=== PATIENT | female | born 1980 | race Caucasian/White ===

== ENCOUNTER → 2017-09-27 | Outpatient (CLI) | payer OTHER ==
--- NOTE | 2017-09-27 16:50 | US ---
EXAMINATION TYPE: US pelvic complete DATE OF EXAM: 09/27/2017 COMPARISON: NONE CLINICAL HISTORY: 36-year-old female R10.2 Pelvic and perineal pain. Pt states bloating, ovaries "bur darcie", and irregular menses TECHNIQUE: Transabdominal sonographic images of the pelvis were acquired. Date of LMP: 09/15/2017 FINDINGS: EXAM MEASUREMENTS: Uterus: 9.4 x 4.0 x 4.9 cm Endometrial Stripe: 0.5 cm Right Ovary: 2.0 x 2.1 x 1.5 cm Left Ovary: 2.6 x 1.8 x 1.6 cm 1. Uterus: Anteverted wnl 2. Endometrium: wnl 3. Right Ovary: wnl 4. Left Ovary: wnl 5. Bilateral Adnexa: wnl 6. Posterior cul-de-sac: wnl Collet Driller notes:No abnormality visualized to account for pt's symptoms IMPRESSION: Unremarkable transabdominal sonographic examination of the pelvis.
== END ==
LOC: RADUSWWP 14:14
PROVIDERS: ATTEND Family Medicine
DX: R10.2 Pelvic and perineal pain (principal)
CPT/HCPCS: 76856

== ENCOUNTER → 2017-12-14 | Outpatient (CLI) | payer OTHER ==
--- NOTE | 2017-12-14 17:55 | US ---
EXAMINATION TYPE: US thyroid st tissue head/neck DATE OF EXAM: 12/14/2017 COMPARISON: NONE CLINICAL HISTORY: E03.9 ACQUIRED HYPOTHYROIDISM. History of Grave's disease and 2 doses of radioactiv e iodine, most recent was 6 years ago GLAND SIZE: Right Lobe: 2.7 x 0.5 x 1.0 cm Overall Parenchyma: heterogenous Left Lobe: 2.1 x 0.7 x 0.9 cm Overall Parenchyma: heterogeneous Isthmus Thickness: 0.2 cm NODULES RIGHT: # of nodules measured on right: 0 LEFT: # of nodules measured on left: 0 ISTHMUS: # of nodules measured in the isthmus: 0 Bilateral neck scanned, no evidence of lymphadenopathy. difficult to visualize thyroid gland due to it's size (extremely small) IMPRESSION: No thyroid mass identified.
== END | disposition home or self-care (01) ==
LOC: RADUSWWP 16:54
PROVIDERS: ATTEND Family Medicine
DX: E03.9 Hypothyroidism, unspecified (principal)
CPT/HCPCS: 76536

== ENCOUNTER → 2017-12-17 | Outpatient (CLI) | payer OTHER ==
--- NOTE | 2017-12-18 17:25 | MR ---
EXAMINATION TYPE: MR lumbar spine wo con DATE OF EXAM: 12/17/2017 COMPARISON: None HISTORY: 37-year-old female with Low back pain TECHNIQUE: Multiplanar, multisequence images of the lumbar spine were acquired. Findings: Vertebral body heights are preserved and alignment is maintained. Diffuse decreased marrow signal intensity suggesting red marrow hyperplasia. Conus medullaris is normal. Slight prominence of the central canal is noted. Tiny subcentimeter T2 hyperintensity within the upper pole left kidney, likely tiny cyst. Degenerative disc disease lower lumbar spine with a disc desiccation and disc bulging at L4-L5. Poste rior annular fissure is present. At L5-S1, the disc is generated, desiccated, narrowed, diffusely bulging. There is associated Modic t ype II fatty change or. Mild facet arthropathy lower lumbar spine. At the T12-L1, mild bulging disc without canal or foraminal stenosis. L1-L2, mild bulging disc without canal or foraminal stenosis. At L2-L3, minimal bulging disc without canal or foraminal stenosis. At L3-L4, minimal bulging disc with ligamentum flavum thickening. No canal or foraminal stenosis. At L4-L5, diffuse disc bulge with mild facet degenerative change. Posterior annular fissure is presen t. Changes result in minimal inferior foraminal narrowing on the right. No spinal canal stenosis. At L5-S1, bulging disc and facet degenerative change. No significant spinal canal or neural foraminal stenosis seen. No prevertebral or paravertebral soft tissue quality. IMPRESSION: 1. Moderate degenerative disc disease at L5-S1 with degenerated, desiccated, narrowed, a diffusely bu lging disc with associated Modic type II endplate change. 2. Additional disc desiccation and disc bulge with posterior annular fissure at L4-L5. 3. Additional levels of very mild disc bulging throughout and facet arthropathy in the lower lumbar s pine. 4. Changes contribute to minimal inferior foraminal narrowing on the right at L4-L5. No spinal canal stenosis. 5. Low marrow signal suggestive of red marrow hyperplasia. This can be seen in the setting of anemia, obesity, smoking, and chronic disease. Clinically correlate. 6. Incidental slight prominence to the central canal of the visualized distal cord, probably normal v ariation. If there is clinical possibility of syrinx, consider surveying the cervical and thoracic sp ine.
== END ==
LOC: RADMRIMAIN 14:36
PROVIDERS: ATTEND Psychiatry & Neurology Neurology
DX: M48.061 Spinal stenosis, lumbar region without neurogenic claudication (principal); M99.73 Connective tissue and disc stenosis of intervertebral foramina of lumbar region; M46.96 Unspecified inflammatory spondylopathy, lumbar region; M51.37 Other intervertebral disc degeneration, lumbosacral region; M47.816 Spondylosis without myelopathy or radiculopathy, lumbar region; M51.26 Other intervertebral disc displacement, lumbar region
CPT/HCPCS: 72148

== ENCOUNTER → 2018-03-06 | Outpatient (CLI) | payer OTHER | END | disposition home or self-care (01) | LOC: LABWHC1 15:58 | PROVIDERS: ATTEND Allergy & Immunology | DX: R10.9 Unspecified abdominal pain (principal) | CPT/HCPCS: 36415; 82785 ==

== ENCOUNTER → 2018-03-22 | Outpatient (CLI) | payer OTHER ==
--- NOTE | 2018-03-22 13:32 | XR ---
Cervical spine HISTORY: Neck pain 5 views of the cervical spine Cervical vertebral bodies show preserved height, alignment, and bone mineralization. Some loss of dis c height present at the intervertebral levels, there is spondylosis present at C4-5. No significant f oraminal encroachment. Odontoid view somewhat limited. Prevertebral soft tissues are normal. IMPRESSION: Degenerative disc disease.
== END | disposition home or self-care (01) ==
LOC: RADXRMAIN 11:11
PROVIDERS: ATTEND Family Medicine
DX: M50.30 Other cervical disc degeneration, unspecified cervical region (principal)
CPT/HCPCS: 72050

== ENCOUNTER 2019-09-30 17:56 | Emergency (ER) | payer OTHER ==
[2019-09-30 18:02] VITALS: BP 126/86; PULSE 82; RESP 20; TEMP 98.3
[2019-09-30] MEDS ORDERED: LIDOCAINE/EPINEPHR/TETRACAINE 5 ML BOTTLE TOPICAL ONE (18:32)
[2019-09-30] MEDS ORDERED: ONDANSETRON 4 MG ODT STARTER PACK 2 TAB BTL PO STA (18:35)
[2019-09-30] MEDS ORDERED: ACET/COD 300 MG/30 MG STARTER PACK 6 TAB BTL PO STA (18:35)
--- NOTE | 2019-09-30 19:13 | ED ---
General Adult HPI - General Chief complaint: Recheck/Abnormal Lab/Rx Stated complaint: Private Time Seen by Provider: 09/30/19 18:05 Source: patient, RN notes reviewed, old records reviewed Mode of arrival: ambulatory Limitations: no limitations - History of Present Illness Initial comments: Patient is a 38-year-old female presents returns today with chief complaint of painful hemorrhoid. She reports she's had this hemorrhoid pain Starting last night into today. She states that she's had an extensive history of hemorrhoids and has had banding multiple times. Patient states that she has history of early bowel syndrome and suffers attending constipation and diarrhea. Lately she's had more frequent diarrhea which triggered these hemorrhoids to occur she is going to the bathroom frequently. Patient states that she is not on blood thinners. She states she's previously had have her hemorrhoid lanced. She is hoping that this can be done today. - Related Data Previous Rx's Medication Instructions Recorded Acetaminophen with Codeine 1 tab PO Q6H PRN 3 Days #12 tab 09/30/19 [Tylenol w/codeine #3] Lidocaine [Lidocaine 5% Rectal 1 applic RECTAL TID #15 gm 09/30/19 Cream] Ondansetron Odt [Zofran Odt] 4 mg PO Q8HR PRN #12 tab 09/30/19 Allergies Allergy/AdvReac Type Severity Reaction Status Date / Time No Known Allergies Allergy Verified 09/30/19 18:02 Review of Systems ROS Statement: Those systems with pertinent positive or pertinent negative responses have been documented in the HPI. ROS Other: All systems not noted in ROS Statement are negative. Past Medical History Past Medical History: Hyperlipidemia Additional Past Medical History / Comment(s): hemorroids. graves. IBS History of Any Multi-Drug Resistant Organisms: None Reported Past Surgical History: No Surgical Hx Reported Past Psychological History: Anxiety Smoking Status: Never smoker Past Alcohol Use History: None Reported Past Drug Use History: None Reported General Exam - General Exam Comments Initial Comments: Patient is a 38-year-old female. Alert and oriented. No distress. Limitations: no limitations General appearance: alert, in no apparent distress Head exam: Present: atraumatic, normocephalic, normal inspection Eye exam: Present: normal appearance, PERRL, EOMI. Absent: scleral icterus, conjunctival injection, periorbital swelling ENT exam: Present: normal exam, mucous membranes moist Neck exam: Present: normal inspection. Absent: tenderness, meningismus, lymphadenopathy Respiratory exam: Present: normal lung sounds bilaterally. Absent: respiratory distress, wheezes, rales, rhonchi, stridor Cardiovascular Exam: Present: regular rate, normal rhythm, normal heart sounds. Absent: systolic murmur, diastolic murmur, rubs, gallop, clicks GI/Abdominal exam: Present: soft, normal bowel sounds. Absent: distended, tenderness, guarding, rebound, rigid Rectal exam: Present: hemorrhoids (Patient has a large thrombosed hemorrhoid on the right side with some concern for starting of thrombosis.). Absent: normal inspection Extremities exam: Present: normal inspection, full ROM, normal capillary refill. Absent: tenderness, pedal edema, joint swelling, calf tenderness Back exam: Present: normal inspection Neurological exam: Present: alert, oriented X3, CN II-XII intact Psychiatric exam: Present: normal affect, normal mood Skin exam: Present: warm, dry, intact, normal color. Absent: rash Course Vital Signs 09/30/19 09/30/19 17:58 19:24 Temperature 98.3 F 98.3 F Pulse Rate 82 82 Respiratory 20 20 Rate Blood Pressure 126/86 126/86 O2 Sat by Pulse 99 99 Oximetry Medical Decision Making - Medical Decision Making 38-year-old female presents to return today for concern for thrombosed hemorrhoid and significant rectal pain. Patient at this time has multiple hemorrhoids on exam one area of close to being thrombosed. Examined the Patient with Dr. Goff did discuss possible drainage and lancing of the hemorrhoid. Dr. Goff determined hemorrhoid is is not fully thrombosed and would recommend ag ainst lancing the hemorrhoid it at this time. Patient did have topical lidocaine over there and reports some mild improvement. We'll discharge the Patient with a short course of pain medication, nausea medication and lidocaine cream to use as well as Preparation H. Discussed she should follow-up with her surgeon or her pain was more severe she can always return to the ER. Disposition Clinical Impression: Hemorrhoid Disposition: HOME SELF-CARE Condition: Good Instructions (If sedation given, give patient instructions): Hemorrhoids (ED) Additional Instructions: Recommended follow-up with PCP, and colorectal surgeon. Continue to use pain medication nausea medicine. you can use topical lidocaine. Patient should return to the emergency department if any alarming signs or symptoms occur. Prescriptions: Lidocaine [Lidocaine 5% Rectal Cream] 1 applic RECTAL TID #15 gm Acetaminophen with Codeine [Tylenol w/codeine #3] 1 tab PO Q6H PRN 3 Days #12 tab PRN Reason: Pain Ondansetron Odt [Zofran Odt] 4 mg PO Q8HR PRN #12 tab PRN Reason: Nausea Is patient prescribed a controlled substance at d/c from ED?: No Referrals: Gloria Conner MD [Primary Care Provider] - 1-2 days Time of Disposition: 19:11
== END 2019-09-30 19:25 | disposition home or self-care (01) ==
LOC: EC 17:56
DX: K64.5 Perianal venous thrombosis (principal)
CPT/HCPCS: 99283; S0119

== ENCOUNTER → 2019-10-11 | Outpatient (CLI) | payer OTHER ==
[2019-10-11 18:52] LABS: Potassium 3.9 mmol/L (3.5-5.5)
[2019-10-11 19:50] LABS: HCG,Quantitative Serum <2.0 mIU/mL
== END | disposition home or self-care (01) ==
LOC: LABWHC1 13:49
PROVIDERS: ATTEND Dermatology Procedural Dermatology
DX: L73.2 Hidradenitis suppurativa (principal)
CPT/HCPCS: 36415; 84132; 84702

== ENCOUNTER 2020-02-19 04:46 | Emergency (ER) | payer OTHER ==
[2020-02-19 04:57] VITALS: RESP 18; TEMP 98.1
--- NOTE | 2020-02-19 05:11 | ED ---
Recheck HPI - General Chief Complaint: GI Bleed Stated Complaint: hemorrhoids Time Seen by Provider: 02/19/20 04:46 Source: patient, RN notes reviewed, old records reviewed Mode of arrival: ambulatory Limitations: no limitations - History of Present Illness Initial Comments: This is a 3-year-old female DF for evaluation patient has history of hemorrhoids taken due to irritable bowel disease. Both diarrhea and constipation. Patient states her with her severe currently with severe pain has had not had any recent bleeding has had history of surgery multiple surgeries in her hemorrhoids in the past. Patient has otherwise no new complaints MD Complaint: wound re-check, medication refill request -: year(s) Returns Today for: persistent/worsening pain related to initial visit Symptoms Since Prior Visit: worsening pain Context: ran out of medication Associated Symptoms: none Treatments Prior to Arrival: Given Pain Meds on - Related Data Previous Rx's Medication Instructions Recorded Acetaminophen with Codeine 1 tab PO Q6H PRN 3 Days #12 tab 09/30/19 [Tylenol w/codeine #3] Lidocaine [Lidocaine 5% Rectal 1 applic RECTAL TID #15 gm 09/30/19 Cream] Ondansetron Odt [Zofran Odt] 4 mg PO Q8HR PRN #12 tab 09/30/19 Allergies Allergy/AdvReac Type Severity Reaction Status Date / Time No Known Allergies Allergy Verified 02/19/20 04:57 Review of Systems ROS Statement: Those systems with pertinent positive or pertinent negative responses have been documented in the HPI. ROS Other: All systems not noted in ROS Statement are negative. Past Medical History Past Medical History: Hyperlipidemia Additional Past Medical History / Comment(s): hemorroids. graves. IBS History of Any Multi-Drug Resistant Organisms: None Reported Past Surgical History: No Surgical Hx Reported Past Psychological History: Anxiety Smoking Status: Never smoker Past Alcohol Use History: None Reported Past Drug Use History: None Reported General Exam Limitations: no limitations General appearance: alert, in no apparent distress Head exam: Present: atraumatic, normocephalic, normal inspection Eye exam: Present: normal appearance, PERRL, EOMI. Absent: scleral icterus, conjunctival injection, periorbital swelling ENT exam: Present: normal exam, mucous membranes moist Neck exam: Present: normal inspection. Absent: tenderness, meningismus, lymphadenopathy Respiratory exam: Present: normal lung sounds bilaterally. Absent: respiratory distress, wheezes, rales, rhonchi, stridor Cardiovascular Exam: Present: regular rate, normal rhythm, normal heart sounds. Absent: systolic murmur, diastolic murmur, rubs, gallop, clicks GI/Abdominal exam: Present: soft, normal bowel sounds. Absent: distended, tenderness, guarding, rebound, rigid Rectal exam: Present: hemorrhoids (Multiple hemorrhoids) Extremities exam: Present: normal inspection, full ROM, normal capillary refill. Absent: tenderness, pedal edema, joint swelling, calf tenderness Back exam: Present: normal inspection Neurological exam: Present: alert, oriented X3, CN II-XII intact Psychiatric exam: Present: normal affect, normal mood Skin exam: Present: warm, dry, intact, normal color. Absent: rash Course Vital Signs 02/19/20 02/19/20 04:53 07:11 Temperature 98.1 F Pulse Rate 65 64 Respiratory 18 18 Rate Blood Pressure 103/72 114/88 O2 Sat by Pulse 99 98 Oximetry - Reevaluation(s) Reevaluation #1: Medical record is reviewed Patient has significant improvement in symptoms Patient has no recent change in complaints Patient and mother informed of results and questions have been answered Patient feels good for discharge Medical Decision Making - Medical Decision Making 39 female DF for eval regarding hemorrhoid and recurrent hemorrhoid pain pain. Patient does have hemorrhoids on exam nonthrombosed. Patient will be given pain control can be discharged home Disposition Clinical Impression: Hemorrhoids Disposition: HOME SELF-CARE Condition: Good Instructions (If sedation given, give patient instructions): Hemorrhoids (ED) Is patient prescribed a controlled substance at d/c from ED?: No Referrals: Gloria Conner MD [Primary Care Provider] - 1-2 days
[2020-02-19] MEDS ORDERED: HYDROmorphone 1 MG/ML 1 ML SYRINGE IM STA (05:32)
[2020-02-19] MEDS ORDERED: IBUPROFEN 800 MG TAB PO STA (05:32)
[2020-02-19] MEDS ORDERED: HYDROCORTISONE SUPPOSITORY 25 MG SUPP RECTAL ONE (05:45)
[2020-02-19] MEDS ORDERED: traMADol 50 MG STARTER PACK 3 TAB BTL PO STA (07:00)
[2020-02-19] MEDS ORDERED: traMADol 50 MG TAB PO STA (07:00)
[2020-02-19 07:13] VITALS: BP 114/88; PULSE 64
[2020-02-19] MEDS ORDERED: LIDOCAINE 5% PATCH TOPICAL SCH (09:00)
== END 2020-02-19 07:19 | disposition home or self-care (01) ==
LOC: EC 04:46
DX: K64.9 Unspecified hemorrhoids (principal); Z87.19 Personal history of other diseases of the digestive system
CPT/HCPCS: 96372; 99285; J1170

== ENCOUNTER → 2020-06-20 | Outpatient (CLI) | payer OTHER ==
--- NOTE | 2020-06-20 14:49 | MM ---
Reason for exam: screening (asymptomatic). Baseline mammogram. History: Family history of breast cancer in maternal grandmother at age 70. Taking hormonal contraceptives beginning at age 15. Physical Findings: Nurse did not find any significant physical abnormalities on exam. MG Screening Mammo w CAD Bilateral CC and MLO view(s) were taken. There are scattered fibroglandular densities. There is no discrete abnormality. No significant new findings when compared with previous films. These results were verbally communicated with the patient and result sheet given to the patient on 06/20/20. ASSESSMENT: Negative, BI-RAD 1 RECOMMENDATION: Routine screening mammogram of both breasts in 1 year.
== END | disposition home or self-care (01) ==
LOC: RADMAMWWP 13:07
PROVIDERS: ATTEND Obstetrics & Gynecology
DX: Z12.31 Encounter for screening mammogram for malignant neoplasm of breast (principal); Z80.3 Family history of malignant neoplasm of breast
CPT/HCPCS: 77067

== ENCOUNTER → 2020-08-05 | Outpatient (CLI) | payer OTHER ==
--- NOTE | 2020-08-05 19:27 | CONS ---
CONSULTATION REASON FOR CONSULTATION: Sleep apnea. HISTORY OF PRESENT ILLNESS: Aline is a 39-year-old female patient who is coming in with multiple complaints. There is a concern that she may have an underlying obstructive sleep apnea. The patient reports that she feels like she stops breathing in the middle of the night. She snores loud and she wakes up almost 30 times in the middle of the night. Sometimes she feels like her heart stops beating. She is very much tired and sleepy during the day. She can fall asleep at any time. She is ingesting large quantities of caffeinated beverages including coffee. She goes to bed around 8:30 pm, wakes up at 6 a.m. in the morning and she is working locally for [employer]. She does a lot of computer work and she says this is affecting her quality of life and affecting her functionality at work. No recent weight gain. She sleeps on her side. She is a nose breather. She has undergone radioactive iodine treatment for previous history of Graves disease. She is currently on thyroid hormone replacement. No grinding of the teeth. No restlessness of the lower extremities. She wakes up to urinate multiple occasion during the middle of the night. No history of any motor vehicle accident because of feeling drowsy or sleepy. PAST MEDICAL HISTORY: Chronic anxiety, hyperlipidemia and Graves disease. SURGICAL HISTORY: Includes eyelid surgery. DRUG ALLERGIES: Not known. OUTPATIENT MEDICATION LIST: Includes Lipitor 20 daily, levothyroxine 125 mcg p.o. q.a.m., medroxyprogesterone shots and BuSpar 10 mg p.o. daily. SOCIAL HISTORY: Nonsmoker. She drinks coffee in excess. No history of alcohol. No history of substance abuse. FAMILY HISTORY: Her son has asthma. Hypertension, and hyperlipidemia and CVA also runs in the family. REVIEW OF SYSTEMS: Fourteen-point review of system was done. Positive findings are mentioned in history of present illness. The patient also prefers a gluten free diet. No lactulose diet. PHYSICAL EXAMINATION: VITAL SIGNS: Her BP is 115/71, pulse 93, respirations 16, temperature 98.3, saturation 99% on room air. Height is 5 feet 7 inches, weight is 185, BMI is 28.8. Neck size 15 inches. Morrison score is at 3. General appearance: Calm, comfortable. Head atraumatic, normocephalic. NECK: Supple. No JVD. No goiter or neck masses. Slight micrognathia. Mallampati class 1. LUNGS: Clear to auscultation. HEART: Heart sounds are regular rate and rhythm. Normal S1, S2. No S3, S4. No murmurs. ABDOMEN: Soft, nontender. No organomegaly. EXTREMITIES: No edema. No cyanosis or clubbing. NEUROLOGIC: Awake and alert. There is no focal neurological deficits. PSYCHIATRIC: Negative for anxiety or depression. IMPRESSION: 1. Chronic hypersomnia under investigation consider underlying obstructive sleep apnea. The patient has all clinical symptoms of obstructive sleep apnea. Anatomically she has an adequate upper airway structures with a Mallampati class 1 and her body mass index is only at 28.8. Nevertheless, clinically, there is a high suspicion for obstructive sleep apnea. 2. Chronic anxiety. 3. History of Graves disease treated with radioactive iodine treatment. 4. Hyperlipidemia. 5. Chronic anxiety. PLAN: 1. Proceed with a full polysomnogram. 2. Will get back to the patient with the results and will decide on treatment accordingly. MMODL / IJN: [id number] /
== END ==
CPT/HCPCS: 99211

== ENCOUNTER → 2021-04-21 | Outpatient (CLI) | payer OTHER ==
--- NOTE | 2021-04-21 22:44 | CT ---
EXAMINATION TYPE: CT lumbar spine wo con DATE OF EXAM: 04/21/2021 5:41 PM COMPARISON: MRI dated 12/17/2017 HISTORY: worsening low back pain CT DLP: 904.3 mGycm Automated exposure control for dose reduction was used. Technique: Unenhanced CT of the lumbar spine was performed. Bone and soft tissue window settings are submitted as well as coronal and sagittal reconstructions. FINDINGS: Preserved lumbar lordosis. No significant anterolisthesis or retrolisthesis. No definite vertebral marion dy collapse or acute displaced fracture. At L1-2 level: No significant disc disease, central spinal canal stenosis or neuroforaminal stenosis. At L2-3 level: Mild posterior annular disc relaxation, causing no significant central spinal canal st enosis or neuroforaminal stenosis. At L3-4 level: Mild diffuse posterior disc bulge, causing no significant central spinal canal stenosi s or significant neuroforaminal stenosis. At L4-5 level: Slightly degenerated disc with diffuse posterior disc bulge, causing no significant ce ntral spinal canal stenosis or significant neural foraminal stenosis. At L5-S1 level: Markedly degenerated disc with disc calcification, osteophytosis and beginning of fus ion between L5 and S1. Diffuse posterior disc osteophyte complex seen mainly centrally, associated wi th mild facet osteoarthropathy, causing mild (likely insignificant) central spinal canal stenosis and no significant neuroforaminal stenosis. Prominent yet subcentimeter retroperitoneal lymph nodes. No paraspinal lesion. IMPRESSION: Degenerative changes of the lumbar spine most evident at L5-S1 level as detailed above. Still no sign ificant central spinal canal stenosis or neuroforaminal stenosis.
== END | disposition home or self-care (01) ==
LOC: RADCTMAIN 16:46
PROVIDERS: ATTEND Orthopaedic Surgery
DX: M51.37 Other intervertebral disc degeneration, lumbosacral region (principal)
CPT/HCPCS: 72131

== ENCOUNTER → 2021-04-21 | Outpatient (CLI) | payer OTHER ==
--- NOTE | 2021-04-22 04:06 | MR ---
EXAMINATION TYPE: MR lumbar spine wo con DATE OF EXAM: 04/21/2021 COMPARISON: 12/17/2017 HISTORY: Low back pain for 20 years Multiplanar multi echo imaging of the lumbar spine without contrast. The lumbar vertebrae have normal alignment. Disc spaces are fairly normal. There is no compression fr acture. There is developmentally large spinal canal. No spinal stenosis. 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 Lumbar nerve roots appear normal. The neural foramina are widely patent. Ther e is no lumbar paraspinal mass. There is no compression fracture. The sacroiliac joints appear intact. No evidence of focal bone dest ruction. IMPRESSION: Minor degenerative disc change at L4-5. No fracture. No spinal stenosis. No significant change compar ed to old exam.
== END | disposition home or self-care (01) ==
LOC: RADMRIMAIN 16:43
PROVIDERS: ATTEND Orthopaedic Surgery
DX: M51.36 Other intervertebral disc degeneration, lumbar region (principal)
CPT/HCPCS: 72148

== ENCOUNTER → 2021-05-12 | Outpatient (CLI) | payer OTHER ==
--- NOTE | 2021-05-12 14:01 | XR ---
EXAMINATION TYPE: XR chest 2V DATE OF EXAM: 05/12/2021 COMPARISON: NONE TECHNIQUE: PA and lateral views submitted. HISTORY: Chronic cough FINDINGS: The lungs are clear and there is no pneumothorax, pleural effusion, or focal pneumonia. Coarsened i nterstitial markings. Mild hyperinflation. Mild hypertrophic change of the spine. IMPRESSION: 1. Correlate for bronchitis, interstitial lung disease or pneumonitis..
== END | disposition home or self-care (01) ==
LOC: RADXRMAIN 13:44
PROVIDERS: ATTEND Family Medicine
DX: R05.3 Chronic cough (principal)
CPT/HCPCS: 71046

== ENCOUNTER → 2021-06-17 | Outpatient (CLI) | payer OTHER ==
--- NOTE | 2021-06-17 08:53 | MM ---
Reason for exam: clinical finding. Last mammogram was performed 1 year ago. History: Family history of breast cancer in maternal grandmother at age 70. Taking hormonal contraceptives beginning at age 15. Physical Findings: A clinical breast exam by your physician is recommended on an annual basis and results should be correlated with mammographic findings. MG Diagnostic Mammo w CAD BE Bilateral CC and MLO view(s) were taken. LM, spot compression CC, and spot compression MLO view(s) were taken of the left breast. Prior study comparison: June 20, 2020, bilateral MG screening mammo w CAD. The breast tissue is heterogeneously dense. This may lower the sensitivity of mammography. There is no discrete abnormality including area of concern. No significant new findings when compared with previous films. Results were given to the patient verbally at the time of the exam. ASSESSMENT: Negative, BI-RAD 1 RECOMMENDATION: Routine screening mammogram of both breasts in 1 year.
== END | disposition home or self-care (01) ==
LOC: RADMAMWWP 08:18
PROVIDERS: ATTEND Obstetrics & Gynecology
DX: Z12.31 Encounter for screening mammogram for malignant neoplasm of breast (principal); Z80.3 Family history of malignant neoplasm of breast; N64.4 Mastodynia
CPT/HCPCS: 77066

== ENCOUNTER → 2022-06-21 | Outpatient (CLI) | payer OTHER ==
--- NOTE | 2022-06-22 08:01 | MM ---
Reason for Exam: Screening (asymptomatic). Last screening mammogram was performed 12 month(s) ago. Patient History: Menarche at age 14. First Full-Term at age 21. Hormonal Contraceptives, starting at age 15. Maternal grandmother had breast cancer, age 70. Risk Values: Agnes 5 year model risk: 0.5%. NCI Lifetime model risk: 8.1%. Prior Study Comparison: 06/20/2020 Bilateral Screening Mammogram, [facility]. 06/17/2021 Bilateral Diagnostic Mammogram, [facility]. Tissue Density: There are scattered fibroglandular densities. Findings: Analyzed By CAD. There is no suspicious group of microcalcifications or new suspicious mass in either breast. Overall Assessment: Negative, BI-RAD 1 Management: Screening Mammogram of both breasts in 1 year. A clinical breast exam by your physician is recommended on an annual basis and results should be correlated with mammographic findings. Electronically signed and approved by: Santana Cartagena M.D. Radiologis
== END | disposition home or self-care (01) ==
LOC: RADMAMWWP 09:42
PROVIDERS: ATTEND Obstetrics & Gynecology
DX: Z12.31 Encounter for screening mammogram for malignant neoplasm of breast (principal); Z80.3 Family history of malignant neoplasm of breast
CPT/HCPCS: 77063; 77067

== ENCOUNTER → 2023-03-23 | Outpatient (CLI) | payer OTHER ==
--- NOTE | 2023-03-23 14:37 | XR ---
EXAMINATION TYPE: XR cervical spine comp DATE OF EXAM: 03/23/2023 2:06 PM CLINICAL INDICATION:Female, 42 years old with history of M54.2 XR CERVICALGIA; COMPARISON: 03/22/2018 TECHNIQUE: The cervical spine was imaged in frontal, lateral, odontoid and bilateral oblique. FINDINGS: The osseous structures show normal alignment without evidence of an acute fracture. There are osteoph ytes noted throughout the cervical spine on the anterior and lateral aspects of the vertebral bodies. The intervertebral disk spaces are narrowed at multiple levels. Pedicles are intact. Soft tissues a re within normal limits. The odontoid appears intact. IMPRESSION: 1. No fracture or dislocation. 2. Mild degenerative disc disease changes of the cervical spine.
== END | disposition home or self-care (01) ==
LOC: RADXRMAIN 13:40
PROVIDERS: ATTEND Family Medicine
DX: M50.30 Other cervical disc degeneration, unspecified cervical region (principal)
CPT/HCPCS: 72050

== ENCOUNTER → 2023-08-15 | Outpatient (CLI) | payer OTHER ==
--- NOTE | 2023-08-17 09:59 | MM ---
Reason for Exam: Screening (asymptomatic). Last mammogram was performed 1 year(s) and 2 month(s) ago. Patient History: Menarche at age 14. First Full-Term at age 21. Patient has history of breast feeding. Hormonal Contraceptives, starting at age 15. Maternal grandmother had breast cancer, age 70. Risk Values: Agnes 5 year model risk: 0.6%. NCI Lifetime model risk: 8.0%. Prior Study Comparison: 06/20/2020 Bilateral Screening Mammogram, [facility]. 06/17/2021 Bilateral Diagnostic Mammogram, [facility]. 06/21/2022 Bilateral MG 3D screening mammo w/cad, [facility]. Tissue Density: There are scattered areas of fibroglandular density. Findings: Analyzed By CAD. There is no suspicious group of microcalcifications or new suspicious mass in either breast. Overall Assessment: Negative, BI-RAD 1 Management: Screening Mammogram of both breasts in 1 year. . Patient should continue monthly self-breast exams. A clinical breast exam by your physician is recommended on an annual basis. This exam should not preclude additional follow-up of suspicious palpable abnormalities. Note on Agnes scores and lifetime risk: 1. A Agnes score greater than 3% is considered moderate risk. If this is the case, consider specialist referral to assess eligibility for a risk reducing agent. 2. If overall lifetime risk for the development of breast cancer is 20% or higher, the patient may qualify for future screening with alternating mammogram and breast MRI. Electronically signed and approved by: Santana Cartagena M.D. Radiologis
== END | disposition home or self-care (01) ==
LOC: RADMAMWWP 11:56
PROVIDERS: ATTEND Obstetrics & Gynecology
DX: Z12.31 Encounter for screening mammogram for malignant neoplasm of breast (principal); Z80.3 Family history of malignant neoplasm of breast
CPT/HCPCS: 77063; 77067

== ENCOUNTER → 2024-09-21 | Outpatient (CLI) | payer OTHER ==
--- NOTE | 2024-09-24 08:03 | MM ---
Reason for Exam: Screening (asymptomatic). Last mammogram was performed 1 year(s) and 1 month(s) ago. Patient History: Menarche at age 14. First Full-Term at age 21. Postmenopausal. Patient has history of breast feeding. Hormonal Contraceptives, starting at age 15. Maternal grandmother had breast cancer, age 70. Risk Values: Agnes 5 year model risk: 0.6%. NCI Lifetime model risk: 8.0%. Prior Study Comparison: 06/17/2021 Bilateral Diagnostic Mammogram, [facility]. 06/21/2022 Bilateral MG 3D screening mammo w/cad, [facility]. 08/15/2023 Bilateral MG 3D screening mammo w/cad, [facility]. Tissue Density: The breasts are heterogeneously dense, which may obscure small masses. Findings: Analyzed By CAD. There is no suspicious group of microcalcifications or new suspicious mass in either breast. Overall Assessment: Negative, BI-RAD 1 Management: Screening Mammogram of both breasts in 1 year. Patient should continue monthly self-breast exams. A clinical breast exam by your physician is recommended on an annual basis. This exam should not preclude additional follow-up of suspicious palpable abnormalities. Note on Agnes scores and lifetime risk: 1. A Agnes score greater than 3% is considered moderate risk. If this is the case, consider specialist referral to assess eligibility for a risk reducing agent. 2. If overall lifetime risk for the development of breast cancer is 20% or higher, the patient may qualify for future screening with alternating mammogram and breast MRI. [facility], , 09/24/2024 8:00 AM. Electronically signed and approved by: Destinee Johnson M.D. Radiologist
== END | disposition home or self-care (01) ==
LOC: RADMAMWWP 15:47
PROVIDERS: ATTEND Midwife
DX: Z12.31 Encounter for screening mammogram for malignant neoplasm of breast (principal); R92.333 Mammographic heterogeneous density, bilateral breasts; Z80.3 Family history of malignant neoplasm of breast; Z92.0 Personal history of contraception; Z78.0 Asymptomatic menopausal state
CPT/HCPCS: 77063; 77067